=== PATIENT | male | born 1980 | race Two or more races ===

== ENCOUNTER 2017-01-01 10:46 | Emergency (ER) | payer MEDICAID, OTHER ==
[~2017-01-01] VITALS: Ht 170.2 cm; Wt 104.8 kg
[2017-01-01 10:49] VITALS: BP 106/65
== END 2017-01-01 13:07 | disposition home or self-care (01) ==
LOC: ER 10:46
DX: F32.9 Major depressive disorder, single episode, unspecified (principal); F41.9 Anxiety disorder, unspecified; Z76.0 Encounter for issue of repeat prescription